=== PATIENT | male | born 1945 | race Caucasian/White ===

== ENCOUNTER 2017-02-26 05:04 | Inpatient (IN) ==
[2017-02-21 11:47] LABS: Appearance,Urine CLEAR; Bacteria,Urine 0 /hpf (0); Bilirubin,Urine NEG (NEG); Color,Urine YELLOW; Glucose,Urine (UA) NEGATIVE (NEG); Leukocyte Esterase,Urine NEG /uL (NEG); Mucus,Urine MANY /hpf (0); Nitrate,Urine NEG (NEG); Protein,Urine 30 mg/dL (NEG); Specific Gravity,Urine 1.032 (1.000-1.035); Urine Blood NEG mg/dL (<0.03); Urine RBC 2 /hpf (0-1); Urine Squamous Epithelial Cell 0 /hpf (0-4); Urine WBC 1 /hpf (0-4); Urobilinogen,Urine NEG (NEG)
[2017-02-21 13:04] LABS: Basophils # (Auto) 0 K/mcL (0.0-0.3); Basophils % (Auto) 0.3 % (0.0-2.0); Eosinophils # (Auto) 0.2 K/mcL (0.0-0.7); Eosinophils % (Auto) 1.4 % (0.0-7.0); Granulocytes % (Auto) 71.4 % (38.0-78.0); Lymphocytes # (Auto) 2.3 K/mcL (1.5-4.8); Lymphocytes % (Auto) 19.7 % (15.5-49.0); Mean Cell Volume 89.2 fL (80.0-100.0); Mean Corpuscular HGB Conc 34.1 g/dL (31.0-36.0); Mean Corpuscular Hemoglobin 30.4 pg (26.0-34.0); Monocytes # (Auto) 0.9 K/mcL (0.1-0.9); Monocytes % (Auto) 7.2 % (1.0-12.0); Platelet Count 378 K/mcL (140-440); RBC 5.06 M/mcL (4.50-5.90); Red Cell Distribution Width 13.4 % (11.5-14.5)
[2017-02-21 13:18] LABS: Blood Urea Nitrogen 15 mg/dl (8-23)
[2017-02-26] MEDS ORDERED: ACETAMINOPHEN 500 MG TABLET PO SCH (06:00)
[2017-02-26] MEDS ORDERED: oxyCODONE 10 MG TAB.ER.12H PO SCH (06:00)
[2017-02-26] MEDS ORDERED: PREGABALIN 75 MG CAPSULE PO SCH (06:00)
[2017-02-26] MEDS ORDERED: CELECOXIB 200 MG CAPSULE PO SCH (06:00)
[2017-02-26] MEDS ORDERED: ceFAZolin 1 GM VIAL IV SCH (06:00)
[2017-02-26] MEDS ORDERED: DEXAMETHASONE 10 MG/ML VIAL IV ONE (07:35)
[2017-02-26] MEDS ORDERED: LIDOCAINE HCL/PF 100 MG/5 ML SYRINGE IV ONE (07:35)
[2017-02-26] MEDS ORDERED: PROPOFOL 200 MG/20 ML VIAL IV ONE (07:35)
[2017-02-26] MEDS ORDERED: MIDAZOLAM 5 MG/5 ML VIAL IV ONE (07:35)
[2017-02-26] MEDS ORDERED: ePHEDrine 50 MG/ML AMPUL IV ONE (07:35)
[2017-02-26] MEDS ORDERED: TRANEXAMIC ACID 1,000 MG/10 ML VIAL IV ONE (07:35)
[2017-02-26] MEDS ORDERED: ONDANSETRON 4 MG/2 ML VIAL IV ONE (07:35)
[2017-02-26] MEDS ORDERED: NALOXONE HCL 0.4 MG/ML VIAL IV PRN (08:12)
[2017-02-26] MEDS ORDERED: IPRATROPIUM/ALBUTEROL 3 ML AMPUL.NEB NEB PRN (08:12)
[2017-02-26] MEDS ORDERED: MEPERIDINE 25 MG/ML SYRINGE IV PRN (08:12)
[2017-02-26] MEDS ORDERED: fentaNYL 100 MCG/2 ML VIAL IV PRN (08:12)
[2017-02-26] MEDS ORDERED: FLUMAZENIL 0.1 MG/ML ML IV PRN (08:12)
[2017-02-26] MEDS ORDERED: ONDANSETRON 4 MG/2 ML VIAL IV PRN ×2 (08:12→08:48)
[2017-02-26] MEDS ORDERED: HYDROmorphone 2 MG/ML SYRINGE IV PRN ×2 (08:12→08:48)
[2017-02-26] MEDS ORDERED: LACTATED RINGERS 250 ML IV PRN (08:12)
[2017-02-26] MEDS ORDERED: METHOCARBAMOL 1,000 MG/10 ML VIAL IV PRN (08:12)
[2017-02-26] MEDS ORDERED: diphenhydrAMINE 50 MG/ML VIAL IV PRN (08:12)
[2017-02-26] MEDS ORDERED: LACTATED RINGERS 1,000 ML IV SCH (08:15)
[2017-02-26] MEDS ORDERED: GENTAMICIN SULFATE 800 MG/20 ML VIAL IR ONE (08:45)
--- NOTE | 2017-02-26 08:47 | Brief Operative Note ---
Date of procedure: 02/26/17 Pre-op diagnosis: right hip djd Post-op diagnosis: same Procedure: RIGHT TOTAL HIP CEMENTLESS Grafts/Implants: Yes Anesthesia: GETA Findings: RIGHT HIP DJD Complications: none Complications Description: 02/26/17 08:47 NONE Surgeon: Anjum Alfaro Manager Gas: Mekhi Batista Estimated blood loss (cc): 100 Specimens Removed/Pathology: none sent Condition: stable Disposition: PACU
[2017-02-26] MEDS ORDERED: BENZOCAINE/MENTHOL 1 LOZENGE PO PRN (08:48)
[2017-02-26] MEDS ORDERED: FLEETS ADULT ENEMA PR PRN (08:48)
[2017-02-26] MEDS ORDERED: MAGNESIUM HYDROXIDE 30 ML ORAL.SUSP PO PRN (08:48)
[2017-02-26] MEDS ORDERED: KETOROLAC 15 MG/ML VIAL IV PRN (08:48)
[2017-02-26] MEDS ORDERED: HYDROcodone/APAP 10/325MG TABLET PO PRN (08:48)
[2017-02-26] MEDS ORDERED: POLYETHYLENE GLYCOL 3350 17 GM PACKET PO PRN (08:48)
[2017-02-26] MEDS ORDERED: TRANEXAMIC ACID 1,000 MG/10 ML VIAL IV SCH (08:48)
[2017-02-26] MEDS ORDERED: BISACODYL 10 MG SUPP.RECT PR PRN (08:48)
--- NOTE | 2017-02-26 09:04 | Operative Note ---
DATE OF OPERATION: 02/26/2017 PREOPERATIVE DIAGNOSIS: Right hip degenerative arthritis. POSTOPERATIVE DIAGNOSIS: Right hip degenerative arthritis. PROCEDURE: Right total hip arthroplasty with the superior posterior approach, cementless components. SURGEON: Anjum Alfaro MD SUPERVISOR ADVICE: Mekhi Batista PA-C ANESTHESIA: General LMA anesthesia. ESTIMATED BLOOD LOSS: About 100 mL COMPLICATIONS: None. IMPLANTS: Size 6 right cementless hip from [place] with a 54 cup with a dual mobility liner. DESCRIPTION OF PROCEDURE: Patient was brought to the operating room and put to sleep with general LMA anesthesia. Once asleep, the patient had the right hip confirmed as the operative site and put to sleep, turned into a left lateral position, sterilely prepped and draped, initials recognized, preop antibiotics given, tranexamic acid given. Once this was done, we then proceeded with a total hip with superior posterior approach. We made an incision about 4 inches in length superior posteriorly and this was dissected down to the greater trochanter. Obturator piriformis were released, the capsule was released and tagged. We then dislocated the hip and made our cut at 34 mm in length from the center of hip rotation. Once done, we then reamed up the acetabulum after removing the labrum up to the size of 53 and implanted a 54 cup, cementless with no screws. Once this was done, because of excellent bone quality we did remove some spurs anteriorly. Once these were removed, we then irrigated thoroughly and then placed a dual mobility liner. Once done, I then reamed up on femur, broached up to a size 6, distally reamed up to size 13 and implanted a size 6 trial with a neutral neck length. X-ray was taken. Once this was done, we then placed the final implant. It did countersink a little more so we did go to a +4 neck length with a 6 stem with outer body dual mobility ball. This fit very well with a ceramic ball. This was reduced with a poly and it was very stable. We repaired the capsule and irrigated thoroughly, closed the fascial layer with #1 Stratafix, closed the skin with 2-0 Vicryl and adhesive closure. The patient tolerated this well. There was no complication. JEREMISAH:renae Job ID: [id number] Doc ID: [id number] Anjum Alfaro MD
--- NOTE | 2017-02-26 09:52 | XRay Report ---
CLINICAL INFORMATION: Postsurgical follow-up TECHNIQUE: AP pelvis. AP and crosstable lateral right hip COMPARISON: None. FINDINGS: Status post right total hip arthroplasty. Alignment is anatomic. Incidental note is made of multiple surgical clips in the pelvis IMPRESSION: Status post right total hip replacement Interpreted and Authenticated by: Shabbir Estrada 02/26/17
--- NOTE | 2017-02-26 09:53 | XRay Report ---
CLINICAL INFORMATION: Total hip arthroplasty TECHNIQUE: Single AP portable intraoperative pelvis COMPARISON: None. FINDINGS: AP pelvis obtained in the operating room. Prosthetic right hip is present IMPRESSION: Intraoperative pelvis for right hip replacement Interpreted and Authenticated by: Shabbir Estrada 02/26/17
[2017-02-26] MEDS: DOCUSATE SODIUM 100 MG CAPSULE PO SCH ×2 (10:14→20:54)
[2017-02-26] MEDS: 0.45 % SODIUM CHLORIDE 1,000 ML IV SCH ×2 (10:19→20:53)
[2017-02-26] MEDS: 0.9 % SODIUM CHLORIDE 10 ML SYRINGE IV SCH ×2 (14:51→20:55)
[2017-02-26] MEDS: ceFAZolin 1 GM VIAL IV SCH ×2 (15:59→23:11)
[2017-02-26] MEDS: ASPIRIN 325 MG ENTERIC COATED TABLET PO SCH (20:53)
[2017-02-26] MEDS ORDERED: TEMAZEPAM 15 MG CAPSULE PO PRN (21:00)
[2017-02-26] MEDS ORDERED: SENNOSIDES 1 TABLET PO SCH (21:00)
[2017-02-27] MEDS: ACETAMINOPHEN 325 MG TABLET PO PRN ×2 (03:07→09:23)
[2017-02-27] MEDS: 0.45 % SODIUM CHLORIDE 1,000 ML IV SCH (05:08)
--- NOTE | 2017-02-27 07:26 | Orthopedic Progress Note ---
Subjective Patient information: Note initiated : 02/27/17 at 7:26 am Service Date, if different from initiated Date: [] Patient: Pablo Gilmore 71 y/o M admitted on 02/26/17 for Right Total Hip Arthroplasty. Chief Complaint: [Pt is stable this morning on post operative day 1 without any significant concerns or complaints. Patients vital signs have remained stable. Patients dressing is dry and exhibits a grossly intact neurovascular and neuromotor exam. Patients 10 point ROS is otherwise negative. ] Objective Vital signs: Vital Signs Temp Pulse Resp BP Pulse Ox 02/27/17 04:00 98.4 F 76 20 124/68 95 02/27/17 02:00 94 02/26/17 23:20 98.3 F 77 20 114/57 95 02/26/17 22:00 95 02/26/17 20:00 98.4 F 85 22 122/67 94 02/26/17 12:50 86 144/73 98 02/26/17 12:00 96 02/26/17 11:50 86 146/77 95 02/26/17 11:20 72 139/72 96 02/26/17 10:50 75 136/71 98 02/26/17 10:35 79 132/52 97 02/26/17 10:20 81 145/77 100 02/26/17 10:05 85 148/78 97 02/26/17 09:48 97.8 F 79 13 131/63 98 02/26/17 09:34 77 13 139/67 99 02/26/17 09:29 74 13 127/65 100 02/26/17 09:24 80 14 138/73 100 02/26/17 09:19 70 13 113/71 100 02/26/17 09:14 67 12 134/61 100 02/26/17 09:09 65 11 L 124/62 100 02/26/17 09:04 98.3 F 75 15 126/59 100 02/26/17 08:00 86 13 98 Intake and Output 02/26/17 02/27/17 02/27/17 21:59 05:59 13:59 Intake Total 1780 / 1780 905 / 905 Output Total 1050 / 1050 1475 / 1475 Balance 730 / 730 -570 / -570 Intake: IV 1000 / 1000 500 / 500 Sodium Chloride 0.45% 1, 1000 / 1000 500 / 500 000 ml @ 100 mls/hr IV . Q10H MARIE Rx#:[id number] Oral 600 / 600 405 / 405 GI Tube Flush 180 / 180 Output: Void Amount 1050 / 1050 1475 / 1475 Other: Meal Dinner Percent of Meal Consumed 75% Feeding Ability Independent # Voids 1 Weight 193 lb Intake & Output: Intake & Output 02/26/17 02/27/17 02/27/17 21:59 05:59 13:59 Intake Total 1780 / 1780 905 / 905 Output Total 1050 / 1050 1475 / 1475 Balance 730 / 730 -570 / -570 Weight 193 lb Intake: IV 1000 / 1000 500 / 500 Sodium Chloride 0.45% 1, 1000 / 1000 500 / 500 000 ml @ 100 mls/hr IV . Q10H MARIE Rx#:[id number] Oral 600 / 600 405 / 405 GI Tube Flush 180 / 180 Output: Void Amount 1050 / 1050 1475 / 1475 Other: Meal Dinner Percent of Meal Consumed 75% Feeding Ability Independent # Voids 1 Incision: Yes healing Incision clean and dry: Yes Dressing: Yes clean, Yes dry Weight bearing status: full Neurological exam IM: Yes motor sensory intact, Yes neurovascular intact Extremities exam IM: Yes normal inspection, Yes Foot pink and warm, Yes neurovascular intact - Labs CBC & BMP: 02/27/17 05:21 02/21/17 10:22 Labs: Orthopedic Labs 02/21/17 10:22 PT 14.3 INR 1.1 APTT 35 02/27/17 02/21/17 05:21 10:22 Hgb 15.4 Hct 35.3 L 45.1 Assessment and Plan (1) Hx of total hip arthroplasty Patient has been educated regarding wound care and dressings, follow up recommendations, and medication use. We will f/u with the patient within 2-3 weeks for wound check. Status: Acute
--- NOTE | 2017-02-27 07:29 | Discharge Summary ---
Ortho Discharge - [facility] - Patient Instructions Diet: Regular Diet Activity: activity as tolerated, weight bearing as tolerated Total Hip Protocol: Follow activity instructions as provided by Physical Therapy. Dressing Care: May shower in 2 days Patient Education: Total Hip Replacement (DC) Additional Instructions: Discharge Instructions: Do the exercises at home that physical therapy gave you. [facility] in [place] [phone] APPOINTMENT: , at 1:00 pm. Your orders have been faxed to them. Take your photo ID, insurance cards, and current medication list with you to your first physical therapy appointment. Wear comfortable clothing for your physical therapy. Weight bearing as tolerated. Take your prescription to pick up driver any medication. [facility] [phone]- Bring your photo ID and insurance cards to pick up driver your walker. If you have the Aquacel Ag dressing, leave in place for 7 days then remove. If dressing becomes soiled (turns black), remove and use gauze 4x4 dressing and silvasorb ointment and change daily. Keep incision clean and dry. If you have Dermabond (a dressing with a mesh-like appearance), leave open to air. You may start showering on post op day #2. The Dermabond dressing can get wet, do not scrub dressing. Pat dry. To avoid constipation while taking any narcotic pain medication, take an over the counter stool softener/laxative. Use your Cryocuff or ice packs as directed, on for 20 minutes at a time throughout the day. This and elevation will help with pain and swelling. Call your physician for fevers above 100.5 or pain not controlled by medication. Your prescriptions are with your discharge information. Some medications were electronically transmitted to your pharmacy of choice. - Problem Maintenance (1) Hx of total hip arthroplasty Status: Acute - Follow Up Plan Follow Up Appointments: Anjum Alfaro MD [Physician] - 03/13/17 1:40 pm Disposition: Home, Self-Care Prognosis: Good Rehab Potential: Good I certify that the patient requires SNF services: No Overall status at discharge: patient is progressing back to baseline - Orders For Discharge Prescriptions: Aspirin [Ecotrin] 325 mg PO BID #60 Docusate Sodium [Colace] 100 mg PO BID #60 capsule HYDROcodone/APAP 10/325MG [[place] 10/325Mg] 1 - 2 tab PO Q4HP PRN #75 tablet PRN Reason: Pain
[2017-02-27] MEDS: DOCUSATE SODIUM 100 MG CAPSULE PO SCH (09:26)
[2017-02-27] MEDS: ASPIRIN 325 MG ENTERIC COATED TABLET PO SCH (09:26)
[2017-02-27] MEDS: 0.9 % SODIUM CHLORIDE 10 ML SYRINGE IV SCH (11:56)
== END 2017-02-27 13:30 | disposition home or self-care (01) | DRG 470 ==
LOC: MEDSUR 05:04
PROVIDERS: ADMIT Orthopaedic Surgery; ATTEND Orthopaedic Surgery

== ENCOUNTER 2017-12-31 11:18 | Inpatient (IN) ==
[2017-12-25 19:56] LABS: Appearance,Urine HAZY; Bacteria,Urine 0 /hpf (0); Bilirubin,Urine NEG (NEG); Calcium Oxalate Crystals,Urine MOD /hpf (0); Color,Urine YELLOW; Glucose,Urine (UA) NEGATIVE (NEG); Leukocyte Esterase,Urine NEG /uL (NEG); Mucus,Urine MANY /hpf (0); Protein,Urine NEG (NEG); Specific Gravity,Urine 1.029 (1.000-1.035); Urine Blood 0.03 mg/dL (<0.03); Urine RBC 3 /hpf (0-1); Urine Squamous Epithelial Cell 0 /hpf (0-4); Urine WBC 1 /hpf (0-4); Urobilinogen,Urine NEG (NEG)
[2017-12-25 19:56] LABS: Blood Urea Nitrogen 17 mg/dl (8-23)
[2017-12-25 20:12] LABS: Basophils # (Auto) 0.1 K/mcL (0.0-0.3); Basophils % (Auto) 0.8 % (0.0-2.0); Eosinophils # (Auto) 0.2 K/mcL (0.0-0.7); Eosinophils % (Auto) 2.5 % (0.0-7.0); Granulocytes % (Auto) 57.6 % (38.0-78.0); Lymphocytes # (Auto) 2.2 K/mcL (1.5-4.8); Lymphocytes % (Auto) 28.8 % (15.5-49.0); Mean Corpuscular HGB Conc 34.3 g/dL (31.0-36.0); Mean Corpuscular Hemoglobin 30.5 pg (26.0-34.0); Monocytes # (Auto) 0.8 K/mcL (0.1-0.9); Monocytes % (Auto) 10.3 % (1.0-12.0); Platelet Count 323 K/mcL (140-440); RBC 5.02 M/mcL (4.50-5.90); Red Cell Distribution Width 14.6 % (11.5-14.5)
[~2017-12-31 11:18] MED LIST: 0.9 % SODIUM CHLORIDE 9 ML, KETOROLAC 30 MG, ROPIVACAINE HCL/PF 49.5 ML, EPINEPHrine 0.... IJ SCH; ACETAMINOPHEN 500 MG TABLET PO SCH; CELECOXIB 200 MG CAPSULE PO SCH; PREGABALIN 75 MG CAPSULE PO SCH; ceFAZolin 1 GM VIAL IV SCH; oxyCODONE 10 MG TAB.ER.12H PO SCH
[2017-12-31] MEDS ORDERED: GENTAMICIN SULFATE 800 MG/20 ML VIAL IR ONE ×2 (14:41→17:42)
[2017-12-31] MEDS ORDERED: ePHEDrine 50 MG/ML AMPUL IV PRN (15:01)
[2017-12-31] MEDS ORDERED: METHOCARBAMOL 1,000 MG/10 ML VIAL IV PRN ×2 (15:01→17:42)
[2017-12-31] MEDS ORDERED: FLUMAZENIL 0.1 MG/ML ML IV PRN ×2 (15:01→17:42)
[2017-12-31] MEDS ORDERED: IPRATROPIUM/ALBUTEROL 3 ML AMPUL.NEB NEB PRN ×2 (15:01→17:42)
[2017-12-31] MEDS ORDERED: fentaNYL 100 MCG/2 ML VIAL IV PRN ×2 (15:01→17:42)
[2017-12-31] MEDS ORDERED: METOPROLOL TARTRATE 5 MG/5 ML VIAL IV PRN (15:01)
[2017-12-31] MEDS ORDERED: PROMETHAZINE 25 MG/ML VIAL IV PRN (15:01)
[2017-12-31] MEDS ORDERED: NALOXONE HCL 0.4 MG/ML VIAL IV PRN ×2 (15:01→17:42)
[2017-12-31] MEDS ORDERED: ONDANSETRON 4 MG/2 ML VIAL IV PRN ×3 (15:01→17:42)
[2017-12-31] MEDS ORDERED: ATROPINE SULFATE 0.4 MG/ML VIAL IV PRN (15:01)
[2017-12-31] MEDS ORDERED: diphenhydrAMINE 50 MG/ML VIAL IV PRN (15:01)
[2017-12-31] MEDS ORDERED: HYDROmorphone 2 MG/ML VIAL IV PRN ×2 (15:01→15:34)
[2017-12-31] MEDS ORDERED: MEPERIDINE 25 MG/ML SYRINGE IV PRN ×2 (15:01→17:42)
[2017-12-31] MEDS ORDERED: LACTATED RINGERS 1,000 ML IV SCH ×2 (15:15→17:45)
[2017-12-31] MEDS ORDERED: POLYETHYLENE GLYCOL 3350 17 GM PACKET PO PRN (15:34)
[2017-12-31] MEDS ORDERED: MAGNESIUM HYDROXIDE 30 ML ORAL.SUSP PO PRN (15:34)
[2017-12-31] MEDS ORDERED: TRANEXAMIC ACID 1,000 MG/10 ML VIAL IV ONE ×2 (15:34→17:20)
[2017-12-31] MEDS ORDERED: TEMAZEPAM 15 MG CAPSULE PO PRN (15:34)
[2017-12-31] MEDS ORDERED: KETOROLAC 15 MG/ML VIAL IV PRN (15:34)
[2017-12-31] MEDS ORDERED: BENZOCAINE/MENTHOL 1 LOZENGE PO PRN ×2 (15:34→17:42)
[2017-12-31] MEDS ORDERED: BISACODYL 10 MG SUPP.RECT PR PRN (15:34)
[2017-12-31] MEDS ORDERED: FLEETS ADULT ENEMA PR PRN (15:34)
--- NOTE | 2017-12-31 15:43 | Brief Operative Note ---
Date of procedure: 12/31/17 Pre-op diagnosis: left hip djd severe Post-op diagnosis: same Procedure: left misty Grafts/Implants: Yes Anesthesia: GETA Complications Description: 12/31/17 15:42 none Surgeon: Anjum Alfaro Director Of Strategic Alliances: Mekhi Batista Estimated blood loss (cc): 50 Specimens Removed/Pathology: none sent Condition: stable Disposition: PACU
--- NOTE | 2017-12-31 16:21 | Operative Note ---
DATE OF OPERATION: 12/31/2017 PREOPERATIVE DIAGNOSIS: Left hip degenerative arthritis. POSTOPERATIVE DIAGNOSIS: Left hip degenerative arthritis. PROCEDURE: Left total hip arthroplasty. SURGEON: Anjum Alfaro M.D. TAILER OFF: Mekhi Batista PA-C. ANESTHESIA: General LMA anesthesia. COMPLICATIONS: None. IMPLANTS: Total hip components are [place]. This is a cementless stem and a 52 mm cup with a 25 mm screw with a 36 mm +2.5 head with a highly cross-linked poly with a العراقي posteriorly. PREOPERATIVE ANTIBIOTICS: Included Ancef 2 grams and tranexamic acid 1 gram. DESCRIPTION OF PROCEDURE: The patient was brought to the operating room and put to sleep with general LMA anesthesia. Once asleep, the patient was turned to the right lateral position. The left hip was sterilely prepped and draped in the usual sterile fashion with the [place] positioner. A timeout was performed confirming the operative site by initials, x-rays and consent form. Once done, we then made a superior approach to the hip. There was a small skin lesion that was excised in line with the skin incision. This seemed to be an epidermal cyst, nothing malignant that we could see. We irrigated thoroughly and then I opened the fascial layer. Once done, we then placed a [place]arn[place] retractor and released the capsule superiorly. We dislocated the hip without difficulty and made our neck cut at 34 mm from the center of hip rotation. Once the cut was made, we then subluxed the hip anteriorly, removed the ball and reamed up the acetabulum after removing the labrum and spurs anteriorly. We then placed retractors and reamed up to the size 52. We implanted a 52 cup placed at 45 degrees of inclination and 20 degrees of anteversion. We placed one 25 mm screw to hold this in place, good purchase achieved. We placed an all-poly liner. This was then irrigated thoroughly. The liner was placed for a 36 mm head, highly cross-linked poly. We reamed up the femoral canal after a cookie cutter was used to remove bone laterally. Lateralizing reamer was used, distal reamer was used, and then broached up to the size of 5. We took an x-ray with a size 5 neutral neck length 36 mm head. This seemed to fit very nicely, but seemed to be somewhat proud and not fully engaging the lateral cortex. We reamed up for a size 6 stem and broached up to the size 6. Once a 6 was placed and countersunk slightly and reduced, we took one more x-ray. This showed to be near anatomically positioned. We then placed the real stem after removing the broach, after a thorough irrigation and then placed a 2.5 neck length. We then trialed the 2.5. This seemed to fit very nicely and very stable. We then placed the real implant. This was a ceramic 2.5. This seemed to be very stable. We closed the capsule with #2 Ethibond, closed the fascial layer with #1 Stratafix, closed the skin with #1 Stratafix and an adhesive closure. Sterile bandage applied. The patient tolerated this well. Blood loss was about 50 mL. FLORESITA:hugo Job ID: [id number] Doc ID: [id number] Anjum Alfaro MD
[2017-12-31] MEDS ORDERED: ceFAZolin 1 GM VIAL IV ONE (16:30)
[2017-12-31] MEDS ORDERED: DEXAMETHASONE 10 MG/ML VIAL IV ONE (17:20)
[2017-12-31] MEDS ORDERED: fentaNYL 100 MCG/2 ML VIAL IV ONE (17:20)
[2017-12-31] MEDS ORDERED: SUCCINYLCHOLINE 20 MG/ML ML IV ONE (17:20)
[2017-12-31] MEDS ORDERED: GLYCOPYRROLATE 0.2 MG/ML VIAL IV ONE (17:20)
[2017-12-31] MEDS ORDERED: ONDANSETRON 4 MG/2 ML VIAL IV ONE (17:20)
[2017-12-31] MEDS ORDERED: PROPOFOL 200 MG/20 ML VIAL IV ONE (17:20)
[2017-12-31] MEDS ORDERED: LIDOCAINE HCL/PF 100 MG/5 ML SYRINGE IV ONE (17:20)
[2017-12-31] MEDS ORDERED: ACETAMINOPHEN 1,000 MG/100 ML BOTTLE IV ONE (17:42)
[2017-12-31] MEDS ORDERED: LACTATED RINGERS 250 ML IV PRN (17:42)
--- NOTE | 2017-12-31 18:33 | Brief Operative Note ---
Date of procedure: 12/31/17 Pre-op diagnosis: left hip anterior subluxation in recovery Post-op diagnosis: same Procedure: left hip revision of head Grafts/Implants: No Anesthesia: GETA Complications Description: 12/31/17 18:32 none Surgeon: Anjum Alfaro Trim Sawyer: Mekhi Batista Estimated blood loss (cc): 20 Specimens Removed/Pathology: none sent Condition: stable Disposition: PACU
[2017-12-31] MEDS: 0.45 % SODIUM CHLORIDE 1,000 ML IV SCH (19:35)
[2017-12-31] MEDS: DOCUSATE SODIUM 100 MG CAPSULE PO SCH (20:13)
[2017-12-31] MEDS: FERROUS SULFATE 325 MG TABLET PO SCH (20:13)
[2017-12-31] MEDS: ASPIRIN 325 MG ENTERIC COATED TABLET PO SCH (20:14)
[2017-12-31] MEDS: HYDROcodone/APAP 10/325MG TABLET PO PRN ×2 (20:15→21:41)
[2017-12-31] MEDS ORDERED: SENNOSIDES 1 TABLET PO SCH (21:00)
[2017-12-31] MEDS ORDERED: FLUTICASONE PROPIONATE SPRAY.NAS NS SCH (21:00)
[2017-12-31] MEDS: ceFAZolin 1 GM VIAL IV SCH (21:41)
[2017-12-31] MEDS: 0.9 % SODIUM CHLORIDE 10 ML SYRINGE IV SCH (21:55)
[2018-01-01] MEDS: ACETAMINOPHEN 325 MG TABLET PO PRN ×2 (00:26→10:59)
[2018-01-01] MEDS: HYDROcodone/APAP 10/325MG TABLET PO PRN ×2 (05:10→17:33)
[2018-01-01] MEDS: ceFAZolin 1 GM VIAL IV SCH (05:10)
[2018-01-01] MEDS: 0.9 % SODIUM CHLORIDE 10 ML SYRINGE IV SCH (05:11)
--- NOTE | 2018-01-01 07:20 | Operative Note ---
DATE OF OPERATION: 12/31/2017 PREOPERATIVE DIAGNOSIS: Anterior hip subluxation on the left side, found in recovery on an x-ray. POSTOPERATIVE DIAGNOSIS: Anterior hip subluxation on the left side, found in recovery on an x-ray. PROCEDURE: Revision of the liner and the femoral head to a dual mobility ball and to lengthen the ball. SURGEON: Anjum Alfaro MD STEAM PRESS OPERATOR: Mekhi Batista PA-C ANESTHESIA: General anesthesia. COMPLICATIONS: None. ESTIMATED BLOOD LOSS: About 30 mL IMPLANTS: A +8 femoral head with a 42 mm dual mobility ball and new liner for the dual mobility implant. The poly liner was removed and 36 mm ceramic head was removed. DESCRIPTION OF PROCEDURE: The patient was brought to the operating room and put to sleep with general LMA anesthesia. Once asleep, the patient had the left hip examined under anesthesia. While asleep, we tried to sublux or dislocate the hip, though the hip did not frankly dislocate anteriorly. We could feel it sublux. It did not dislocate posteriorly with full range of motion posteriorly. At this point, we proceeded with revision of and stabilizing the hip. We made a posterior superior incision through the prior scar, removed the old sutures, went through the fascial layer and then dislocated the hip, removed the ball and evaluated the liner. It was secured and fixed in place as was the cup and stem. At this point, we did remove the poly liner using an osteotome. I placed a dual mobility liner, which was all metal tapped into place. Once locked we then trialed a +4 and a +8 dual mobility liner. The +8 was the most appropriate, though it is slightly lengthened his leg and made it much more stable anteriorly and stopped the impingement posteriorly of all the soft tissues. We then implanted a +8 femoral head in an outer body dual mobility ball of 42 mm. This was reduced under direct vision. We irrigated and took it through the full range of motion both anteriorly and posteriorly. It was stable. We then closed the capsule with #2 Ethibond, closed the fascial layer with #1 Stratafix. Skin was closed with #1 Stratafix in the deep and superficial layers as well as adhesive closure. The patient tolerated this well without complication. Note prior to the case, pre-op antibiotics were given as well as tranexamic acid. RBH:renae Job ID: [id number] Doc ID: [id number] Anjum Alfaro MD
--- NOTE | 2018-01-01 07:46 | Discharge Summary ---
Ortho Discharge - [place] - Patient Instructions Diet: Regular Diet Activity: activity as tolerated, weight bearing as tolerated Total Hip Protocol: Follow activity instructions as provided by Physical Therapy. Dressing Care: May shower in 2 days Patient Education: Total Hip Replacement (DC) - Follow Up Plan Follow Up Appointments: Anjum Alfaro MD [Physician] - 01/15/18 1:50 pm Disposition: Home, Self-Care Prognosis: Good Rehab Potential: Good I certify that the patient requires SNF services: No Overall status at discharge: patient is progressing back to baseline - Orders For Discharge Prescriptions: Aspirin [Ecotrin] 325 mg PO BID #60 tab.ec Docusate Sodium [Colace] 100 mg PO BID #60 cap HYDROcodone/APAP 10/325MG [[place] 10-325Mg] 1 - 2 tab PO Q4HP PRN #75 tab PRN Reason: Pain Level 3-6
--- NOTE | 2018-01-01 07:48 | Orthopedic Progress Note ---
Subjective Patient information: Note initiated : 01/01/18 at 7:47 am Service Date, if different from initiated Date: [] Patient: Pablo Gilmore 72 y/o M admitted on 12/31/17 for Left total Hip Arthroplasty. Chief Complaint: [Pt is stable this morning on post operative day 1 without any significant concerns or complaints. Patients vital signs have remained stable. Patients dressing is dry and is grossly instact from a neurovascular and motor standpoint. Patients 10 point ROS is otherwise negative. ] Objective Vital signs: Vital Signs Temp Pulse Resp BP Pulse Ox 01/01/18 06:49 98.7 F 96 H 14 109/67 94 01/01/18 05:00 94 01/01/18 03:17 97.6 F 89 14 117/69 94 01/01/18 03:00 94 01/01/18 00:01 95 12/31/17 23:00 95 12/31/17 22:21 97.6 F 88 14 137/78 95 12/31/17 21:21 108 H 128/76 98 12/31/17 21:00 98 12/31/17 20:52 89 155/90 98 12/31/17 20:22 92 H 148/84 98 12/31/17 20:07 95 H 156/89 98 12/31/17 19:51 98 H 161/89 97 12/31/17 19:36 95 H 155/91 97 12/31/17 19:21 96.5 F L 96 H 12 158/88 96 12/31/17 19:20 97.0 F 94 H 14 132/75 99 12/31/17 19:05 97.0 F 102 H 14 138/84 100 12/31/17 18:50 97.1 F 94 H 14 148/76 100 12/31/17 18:47 97.1 F 93 H 12 131/68 100 12/31/17 18:40 97.1 F 100 H 12 116/64 100 12/31/17 18:35 97.1 F 98 H 10 L 126/62 100 12/31/17 17:05 78 14 151/79 99 12/31/17 16:55 97.2 F 84 13 153/121 100 12/31/17 16:45 88 12 153/87 100 12/31/17 16:35 96.2 F L 78 10 L 156/75 100 12/31/17 16:19 84 16 158/78 100 12/31/17 16:04 97.8 F 86 16 156/78 100 12/31/17 15:59 94 H 12 157/59 100 12/31/17 15:54 87 16 143/70 100 12/31/17 15:49 97.8 F 97 H 16 144/71 100 12/31/17 11:45 97.3 F 18 157/89 97 Intake and Output 12/31/17 01/01/18 01/01/18 21:59 05:59 13:59 Intake Total 3920 / 3920 1960 / 1960 Output Total 1000 / 1000 450 / 450 Balance 2920 / 2920 1510 / 1510 Intake: IV 100 / 100 1000 / 1000 Sodium Chloride 0.45% 1,000 ml 1000 / 1000 @ 100 mls/hr IV .Q10H MARIE Rx#: [id number] Oral 720 / 720 960 / 960 IV - Manual Only 3100 / 3100 Output: Urine Catheter Amount 800 / 800 450 / 450 Estimated Blood Loss 200 / 200 Other: Weight 191 lb Intake & Output: Intake & Output 12/31/17 01/01/18 01/01/18 21:59 05:59 13:59 Intake Total 3920 / 3920 1959 / 1960 Output Total 1000 / 1000 450 / 450 Balance 2920 / 2920 1510 / 1510 Weight 191 lb Intake: IV 100 / 100 1000 / 1000 Sodium Chloride 0.45% 1,000 ml 1000 / 1000 @ 100 mls/hr IV .Q10H MARIE Rx#: [id number] Oral 720 / 720 960 / 960 IV - Manual Only 3100 / 3100 Output: Urine Catheter Amount 800 / 800 450 / 450 Estimated Blood Loss 200 / 200 Incision: Yes healing Incision clean and dry: Yes Dressing: Yes clean, Yes dry Weight bearing status: full Neurological exam IM: Yes motor sensory intact, Yes neurovascular intact Extremities exam IM: Yes Foot pink and warm, Yes neurovascular intact - Labs CBC & BMP: 01/01/18 04:40 12/25/17 16:39 Labs: Orthopedic Labs 12/25/17 16:39 PT 13.4 INR 1.0 APTT 33 01/01/18 12/25/17 04:40 16:39 Hgb 15.3 Hct 39.3 L 44.6 Assessment and Plan (1) Hx of total hip arthroplasty The patient has been educated regarding dressing care, Physical Therapy recommendations, home exercises, restrictions, and follow up appointments. The patient has had all necessary DME prescribed. The patient has remained relatively stable during their hospital course. Leave Dermabond patch intact until followup Status: Acute
[2018-01-01] MEDS: 0.45 % SODIUM CHLORIDE 1,000 ML IV SCH (08:07)
--- NOTE | 2018-01-01 08:10 | XRay Report ---
HISTORY: Reason for Exam:Post-Op Total Hip FINDINGS: There is a left total hip prosthesis. The articular surface of the acetabular cup is oriented in a ventral direction. This may predispose to an anterior dislocation. Prosthetic femoral head is normally aligned within the acetabulum at this time. There is no fracture. Patient has no underlying well-positioned right total hip prosthesis and there is no reabsorption of bone around the hardware in the right side. There are multiple clips in lower pelvis bilaterally. Impression: left hip prosthesis with rotation of the acetabular cup IMPRESSION: Interpreted and Authenticated by: Darnell Mendes 01/01/18
[2018-01-01] MEDS ORDERED: DOXYCYCLINE HYCLATE 100 MG TABLET.ORL PO SCH (09:00)
[2018-01-01] MEDS: DOCUSATE SODIUM 100 MG CAPSULE PO SCH (09:57)
[2018-01-01] MEDS: FERROUS SULFATE 325 MG TABLET PO SCH (09:57)
[2018-01-01] MEDS: ASPIRIN 325 MG ENTERIC COATED TABLET PO SCH (09:57)
[2018-01-01] MEDS ORDERED: ONDANSETRON 4 MG/2 ML VIAL IV ONE (14:05)
[2018-01-01] MEDS ORDERED: PROPOFOL 200 MG/20 ML VIAL IV ONE (14:05)
[2018-01-01] MEDS ORDERED: LIDOCAINE HCL/PF 100 MG/5 ML SYRINGE IV ONE (14:05)
[2018-01-01] MEDS ORDERED: TRANEXAMIC ACID 1,000 MG/10 ML VIAL IV ONE (14:05)
[2018-01-01] MEDS ORDERED: MIDAZOLAM 5 MG/5 ML VIAL IV ONE (14:05)
[2018-01-01] MEDS ORDERED: SUCCINYLCHOLINE 20 MG/ML ML IV ONE (14:05)
[2018-01-01] MEDS ORDERED: DEXAMETHASONE 10 MG/ML VIAL IV ONE (14:05)
== END 2018-01-01 17:40 | disposition home or self-care (01) | DRG 467 ==
LOC: MEDSUR 11:18
PROVIDERS: ADMIT Orthopaedic Surgery; ATTEND Orthopaedic Surgery